=== PATIENT | female | born 1940 ===

== ENCOUNTER 2017-03-12 14:51 | Emergency (ER) | payer MEDICARE ==
[2017-03-12 15:23] LABS: BASO # 0.1 K/uL (0.0-0.2); BASO % 0.9 % (0.0-2.0); EOS # 0.1 K/uL (0.0-0.7); EOS % 0.9 % (0.0-4.0); HEMATOCRIT 42.7 % (34.0-47.0); LYMPH # 2.2 K/uL (1.0-4.3); LYMPH % 23.8 % (20.0-40.0); MEAN CELL VOLUME 93.2 fL (81.0-99.0); MEAN CORPUSCULAR HEMOGLOBIN 30.5 pg (27.0-31.0); MEAN CORPUSCULAR HGB CONC 32.8 g/dL (33.0-37.0); MEAN PLATELET VOLUME 8.2 fL (7.2-11.7); MONO # 0.6 K/uL (0.0-0.8); MONO % 6.7 % (0.0-10.0); RED CELL DISTRIBUTION WIDTH 14.1 % (11.5-14.5); WHITE BLOOD COUNT 9.4 K/uL (4.8-10.8)
[2017-03-12 15:31] LABS: CHLORIDE 96 mmol/L (98-107); POTASSIUM 4.4 mmol/L (3.6-5.2); SODIUM 134 mmol/L (132-148)
[2017-03-12 15:32] LABS: VENOUS BLOOD GAS BASE EXCESS -12.6 mmol/L (0.0-2.0); VENOUS BLOOD GAS PCO2 33 mmHg (40-60); VENOUS BLOOD PH 7.23 (7.32-7.43)
[2017-03-12 15:33] LABS: BILIRUBIN,TOTAL 0.7 mg/dL (0.2-1.3); GFR AFRICAN-AMERICAN > 60
[2017-03-12 15:34] LABS: ALB/GLOB RATIO 1.6 (1.0-2.1); ALKALINE PHOSPHATASE 97 U/L (38-126); ALT/SGPT 21 U/L (9-52); AST/SGOT 13 U/L (14-36); BLOOD UREA NITROGEN 16 mg/dL (7-17); CARBON DIOXIDE 14 mmol/L (22-30); TOTAL PROTEIN 7.6 g/dL (6.3-8.3)
[2017-03-12 15:35] LABS: CALCIUM 9.1 mg/dl (8.6-10.4)
[2017-03-12 15:53] LABS: GLUCOSE,RANDOM 428 mg/dL (65-105)
--- NOTE | 2017-03-12 15:59 | C.PDOC ---
History Of Present Illness 76-year-old female, PMHx includes Diabetes, presents to the emewrgency department with complaints of palpitations that started last night. Patient states that her rapid heart beat is making her feel fatigued and slightly dizzy. Symptoms intermittent in nature, and patient has not experienced them in the past. Denies fevers, chills, cough, chest pain, shortness of breath or any other associated symptoms. No other complaints at this time. She has recently change her doctor and sees Dr Annette Graves now. She did have a change in many of her medications. Time Seen by Provider: 03/12/17 15:04 Chief Complaint (Nursing): Palpitations History Per: Patient History/Exam Limitations: no limitations Onset/Duration Of Symptoms: Days Current Symptoms Are (Timing): Still Present Past Medical History Reviewed: Historical Data, Nursing Documentation, Vital Signs Vital Signs: Last Vital Signs Temp 97.4 F L 03/12/17 14:59 Pulse 105 H 03/12/17 17:57 Resp 15 03/12/17 17:57 BP 120/64 03/12/17 17:57 Pulse Ox 98 03/12/17 17:57 - Medical History PMH: HTN, Hypercholesterolemia Denies: Chronic Kidney Disease Family History: States: No Known Family Hx - Social History Hx Alcohol Use: No Hx Substance Use: No Review Of Systems Except As Marked, All Systems Reviewed And Found Negative. Constitutional: Positive for: Weakness. Negative for: Fever, Chills Cardiovascular: Positive for: Palpitations, Light Headedness. Negative for: Chest Pain, Orthopnea, Edema Respiratory: Negative for: Cough, Shortness of Breath Gastrointestinal: Negative for: Vomiting Musculoskeletal: Negative for: Back Pain Skin: Negative for: Rash Neurological: Negative for: Weakness, Numbness, Headache, Dizziness Physical Exam - Physical Exam Appears: Non-toxic, No Acute Distress Skin: Normal Color, Warm, Dry Eye(s): bilateral: Normal Inspection, PERRL, EOMI Nose: Normal Neck: Normal ROM Cardiovascular: Rhythm Regular (Tachycardic), No Murmur Respiratory: No Accessory Muscle Use Gastrointestinal/Abdominal: Soft, No Tenderness, No Guarding, No Rebound Extremity: Normal ROM ED Course And Treatment - Laboratory Results Result Diagrams: 03/12/17 15:13 03/12/17 15:13 Lab Interpretation: Abnormal (Blood sugar 428 with HCO3 14. Urine very concentrated) ECG: Interpreted By Me ECG Rhythm: Sinus Tachycardia, ST/T Changes ECG Interpretation: Abnormal O2 Sat by Pulse Oximetry: 98 Pulse Ox Interpretation: Normal Reevaluation Time: 19:10 Reassessment Condition: Improved (after 2 liters of normal saline and Insulin 5 u IVP. Heart rate now 100 and blood sugar 200.) Disposition Counseled Patient/Family Regarding: Studies Performed, Diagnosis, Need For Followup - Disposition Referrals: Annette Graves [Staff Provider] - Disposition: HOME/ ROUTINE Disposition Time: 19:11 Condition: IMPROVED Additional Instructions: Follow up with Dr Graves in the morning. Continue to hydrate and try to limit your carbohydrates. Instructions: Diabetic Hyperglycemia (ED), Dehydration (ED) Print Language: CAPE VERDEAN - Clinical Impression Clinical Impression: Dehydration, mild, Palpitations, Hyperglycemia due to type 2 diabetes mellitus - Scribe Statement The provider has reviewed the documentation as recorded by the Scribchaka Deal All medical record entries made by the Scribe were at my direction and personally dictated by me. I have reviewed the chart and agree that the record accurately reflects my personal performance of the history, physical exam, medical decision making, and the department course for this patient. I have also personally directed, reviewed, and agree with the discharge instructions and disposition.
[2017-03-12 16:06] LABS: THYROID STIMULATING HORMONE 0.26 mIU/L (0.46-4.68)
[2017-03-12 16:07] LABS: RBC URINE < 1 /hpf (0-3); URINE BACTERIA RARE (<OCC); URINE BILIRUBIN NEGATIVE (NEGATIVE); URINE BLOOD NEGATIVE (NEGATIVE); URINE COLOR Straw (YELLOW); URINE GLUCOSE (UA) 3+ mg/dL (Normal); URINE KETONE 2+ mg/dL (NEGATIVE); URINE LEUKOCYTE ESTERASE NEG Leu/uL (Negative); URINE PROTEIN NEGATIVE (NEGATIVE); URINE UROBILINOGEN NORMAL mg/dL (0.2-1.0); WBC URINE 1 /hpf (0-5)
--- NOTE | 2017-03-12 16:19 | RAD ---
PROCEDURE: CHEST RADIOGRAPH, 1 VIEW HISTORY: Palpations COMPARISON: 10/31/2016 FINDINGS: LUNGS: Biapical pleural thickening with upper lobe granulomatous changes. Mild venous congestion. Right hilar prominence. Small nodular density projecting over the lateral aspect of the left upper lung zone may represent a granuloma and or nodule. No focal infiltrate or effusion. PLEURA: As above. CARDIOVASCULAR: Normal. OSSEOUS STRUCTURES: No significant abnormalities. VISUALIZED UPPER ABDOMEN: Normal. OTHER FINDINGS: None. IMPRESSION: Biapical pleural thickening with upper lobe granulomatous changes. Mild venous congestion. Right hilar prominence. Small nodular density projecting over the lateral aspect of the left upper lung zone may represent a granuloma and or nodule. No focal infiltrate or effusion.
[2017-03-12] MEDS ORDERED: Sodium Chloride 0.9% 1,000 ML IV ONE ×2 (16:34→17:39)
[2017-03-12] MEDS ORDERED: (Novolin R) Insulin Human Regular 100 units/ml vial IV ONE (16:35)
[2017-03-12] MEDS ORDERED: (Novolin R) Insulin Human Regular 100 units/ml vial ONE (16:44)
[2017-03-12] MEDS ORDERED: Sodium Chloride 0.9% 1,000 ML ONE (16:44)
[2017-03-12 18:14] VITALS: O2SAT 98
[2017-03-12 19:11] VITALS: BP 118/63; PULSE 103; RESP 20; TEMP 98.6
--- NOTE | 2017-03-13 14:23 | CARD ---
APPROVED REPORT EKG Measurement Heart [id number] [place] [id number] [id number] <Conclusion> Sinus tachycardia Possible Left atrial enlargement T wave abnormality, consider inferior ischemia Abnormal ECG
== END 2017-03-12 19:34 | disposition home or self-care (01) ==
LOC: C.ER 14:51
DX: E11.65 Type 2 diabetes mellitus with hyperglycemia (principal); E86.0 Dehydration; R00.2 Palpitations
CPT/HCPCS: 71010; 80053; 81001; 82803; 82948; 84443; 84479; 84484; 85025; 85378; 93005; 96361; 96374; 99285; J7040

== ENCOUNTER 2018-03-21 19:35 | Emergency (ER) | payer MEDICARE ==
--- NOTE | 2018-03-21 20:29 | C.PDOC ---
History Of Present Illness 78 year old female presents to the ER with a complaint of left anterior chest wall pain that increases with deep breathing. Denies cough, diaphoresis, lightheadedness, nausea, or vomiting. Chief Complaint (Nursing): Chest Pain History Per: Patient History/Exam Limitations: no limitations Onset/Duration Of Symptoms: Hrs Current Symptoms Are (Timing): Still Present Modifying Factors: None Exacerbating Factors: Deep Breathing Alleviating Factors: None Recent travel outside of the [place]: No Past Medical History Reviewed: Historical Data, Nursing Documentation, Vital Signs Vital Signs: Last Vital Signs Temp 98.5 F 03/21/18 19:47 Pulse 85 03/21/18 22:19 Resp 13 03/21/18 22:19 BP 117/49 L 03/21/18 22:19 Pulse Ox 94 L 03/21/18 23:01 - Medical History PMH: HTN, Hypercholesterolemia Family History: States: Unknown Family Hx - Social History Hx Alcohol Use: No Hx Substance Use: No Review Of Systems Constitutional: Positive for: Sweats Cardiovascular: Positive for: Light Headedness Respiratory: Positive for: Cough Gastrointestinal: Positive for: Nausea, Vomiting Musculoskeletal: Positive for: Other (Chest wall pain) Physical Exam - Physical Exam Appears: Non-toxic Skin: Normal Color, Warm, Dry Head: Atraumatic, Normacephalic Eye(s): bilateral: Normal Inspection Oral Mucosa: Moist Chest: Symmetrical, Tenderness (Left anterior wall) Cardiovascular: Rhythm Regular Respiratory: Normal Breath Sounds, No Rales, No Rhonchi, No Wheezing Gastrointestinal/Abdominal: Soft, No Tenderness Neurological/Psych: Oriented x3, Normal Speech ED Course And Treatment - Laboratory Results Result Diagrams: 03/21/18 20:33 03/21/18 20:33 ECG: Interpreted By Me, Viewed By Me ECG Rhythm: Sinus Rhythm ECG Interpretation: Normal, No Acute Changes Interpretation Of ECG: NSR, normal tracings. Rate From EC O2 Sat by Pulse Oximetry: 94 (Room air) Pulse Ox Interpretation: Normal Progress Note: EKG, blood work, and CXR ordered. Toradol administered. Patient offered admission for chest pain observation but refused, family at bedside states they will observe her at home. Disposition Counseled Patient/Family Regarding: Diagnosis - Disposition Referrals: Annette Graves [Staff Provider] - Disposition: HOME/ ROUTINE Disposition Time: 23:00 Condition: STABLE Instructions: Chest Pain, Diabetes in Older Adults Forms: [facility] (Ecuadorean), Gen Discharge Inst Pashto Print Language: KYRGYZ - POA Present On Arrival: None Core Measure Indicators: Chest Pain - Clinical Impression Clinical Impression: Chest pain, Diabetes mellitus - Scribe Statement The provider has reviewed the documentation as recorded by the Scribe Arden Lutz All medical record entries made by the Scribe were at my direction and personally dictated by me. I have reviewed the chart and agree that the record accurately reflects my personal performance of the history, physical exam, medical decision making, and the department course for this patient. I have also personally directed, reviewed, and agree with the discharge instructions and disposition.
[2018-03-21 20:37] LABS: BASO % 0.3 % (0.0-2.0); EOS # 0.3 K/uL (0.0-0.7); EOS % 3.7 % (0.0-4.0); HEMOGLOBIN 12.2 g/dL (11.0-16.0); LYMPH # 2.4 K/uL (1.0-4.3); LYMPH % 28.8 % (20.0-40.0); MEAN CELL VOLUME 90.2 fL (81.0-99.0); MEAN CORPUSCULAR HEMOGLOBIN 30.8 pg (27.0-31.0); MEAN CORPUSCULAR HGB CONC 34.2 g/dL (33.0-37.0); MONO # 0.6 K/uL (0.0-0.8); MONO % 6.6 % (0.0-10.0); NEUT # 5.1 K/uL (1.8-7.0); NEUT % 60.6 % (50.0-75.0); RBC 3.96 Mil/uL (3.80-5.20); RED CELL DISTRIBUTION WIDTH 13.4 % (11.5-14.5); WHITE BLOOD COUNT 8.5 K/uL (4.8-10.8)
[2018-03-21 20:49] LABS: ALB/GLOB RATIO 1.3 (1.0-2.1); ALBUMIN 3.8 g/dL (3.5-5.0); ALT/SGPT 18 U/L (9-52); AST/SGOT 15 U/L (14-36); BLOOD UREA NITROGEN 16 mg/dL (7-17); CALCIUM 8.8 mg/dl (8.6-10.4); GFR AFRICAN-AMERICAN > 60; GFR NON-AFRICAN AMERICAN > 60; LIPASE 49 U/L (23-300)
[2018-03-21] MEDS ORDERED: (Novolin R) Insulin Human Regular 100 units/ml vial SC ONE (22:55)
[2018-03-21 23:17] VITALS: BP 106/49; PULSE 84; RESP 18; TEMP 98.3; O2SAT 95
--- NOTE | 2018-03-22 08:20 | RAD ---
Chest x-ray single frontal view History: Chest pain. Comparison: 03/12/2017 Findings: Small nodular density projecting over the left lung apex is suggestive for granuloma and or nodule. Mild venous congestion. Right hilar prominence. Patchy increased markings at the left lung base may represent atelectasis or infiltrate. Air underneath the left hemidiaphragm may represent gastric bubble. Impression: Small nodular density projecting over the left lung apex is suggestive for granuloma and or nodule. Mild venous congestion. Right hilar prominence.
--- NOTE | 2018-03-22 14:25 | CARD ---
APPROVED REPORT EKG Measurement Heart [id number] MO [id number] <Conclusion> Normal sinus rhythm Normal ECG
== END 2018-03-21 23:29 | disposition home or self-care (01) ==
LOC: C.ER 19:35
DX: R07.9 Chest pain, unspecified (principal); E11.9 Type 2 diabetes mellitus without complications
CPT/HCPCS: 71045; 80053; 83690; 84484; 85025; 85378; 93005; 96374; 99284; J1885

== ENCOUNTER 2018-07-22 23:00 | Emergency (ER) | payer MEDICARE ==
[2018-07-22 23:17] VITALS: O2SAT 97
--- NOTE | 2018-07-23 00:55 | C.PDOC ---
History Of Present Illness 78 year old female presents to the ED c/o worsening right hand pain and swelling. Patient reports that today at 15:00 she fell and landed on her right wrist while pumpkin picking. Patient denies other injuries, LOC, headache, visual changes, weakness, numbness. Time Seen by Provider: 07/22/18 23:25 Chief Complaint (Nursing): Finger,Hand,&Wrist History Per: Patient History/Exam Limitations: no limitations Onset/Duration Of Symptoms: Hrs (15:00) Current Symptoms Are (Timing): Still Present Quality: "Pain" Exacerbating Factor(s): Movement Recent travel outside of the [place]: No Additional History Per: Patient Past Medical History Reviewed: Historical Data, Nursing Documentation, Vital Signs Vital Signs: Last Vital Signs Temp 97.6 F 07/22/18 23:08 Pulse 89 07/22/18 23:08 Resp 20 07/22/18 23:08 BP 118/67 07/22/18 23:08 Pulse Ox 97 07/22/18 23:08 - Medical History PMH: HTN, Hypercholesterolemia Denies: Chronic Kidney Disease Surgical History: No Surg Hx Family History: States: Unknown Family Hx - Social History Hx Alcohol Use: No Hx Substance Use: No - Immunization History Hx Tetanus Toxoid Vaccination: No Hx Influenza Vaccination: No Hx Pneumococcal Vaccination: No Review Of Systems Constitutional: Negative for: Fever, Chills Eyes: Negative for: Vision Change Gastrointestinal: Negative for: Nausea, Vomiting Musculoskeletal: Positive for: Hand Pain. Negative for: Arm Pain Skin: Negative for: Rash Neurological: Negative for: Weakness, Numbness, Headache Physical Exam - Physical Exam Appears: Non-toxic, No Acute Distress Skin: Normal Color, Warm, Dry Head: Atraumatic, Normacephalic Eye(s): bilateral: Normal Inspection Extremity: Normal ROM (limited righyt wrist due to pain), Tenderness (dorsal aspect right wrist), Capillary Refill (< 2 seconds), Swelling (dorsal aspect right wrist) Pulses: Left Radial: Normal, Right Radial: Normal Neurological/Psych: Oriented x3, Normal Speech, Normal Motor, Normal Sensation Gait: Steady ED Course And Treatment O2 Sat by Pulse Oximetry: 97 (ON RA) Pulse Ox Interpretation: Normal - Other Rad Right wrist X-Ray X-Ray: Interpreted by Me, Viewed By Me Interpretation: impacted distal radius fracture Progress Note: Plan: - tylenol 650 mg PO. - Right wrist X-Ray- distal radius fx. XR reviewed by Dr Martin as well. Pt placed in a volar splint by CP and checked by me and placed in sling. Pt remained neurovasc intact after splint. On reassessment, patient is resting comfortably, and is in no acute distress. Patient was instructed to follow up ortho/ hand doctor in 1-2 days for further evaluation. Return precautions discussed Orthopedic Time Performed: 00:59 Time Out: Side verified, Site verified, Patient ID confirmed, Sterile procedures obs. Procedure: Splint Type: Volar Location: Right, Wrist Consent obtained: Verbal Performed by: Mid-level Provider (by CP checked by me) Diagnosis: Fracture Other:: impacted Location: Right, Distal Bone: Radius Capillary refill: Normal Distal Sensation: Normal Distal Motor Function: Normal Capillary Refill: Normal Compartment: Normal Distal Sensation: Normal Distal Motor Function: Normal Post-reduction Radiograph: Good Alignment Patient tolerated procedure: Well Disposition - Disposition Referrals: Tana Jimenez MD [Staff Provider] - Disposition: HOME/ ROUTINE Disposition Time: 01:16 Condition: STABLE Additional Instructions: Keep splint until seen by Hand doctor Follow up with PMD for other orthopedist or hand referral Tylenol or motrin/ advil for pain Return to ER if severe pain, numbness, discoloration of the fingers or worse Instructions: Wrist Fracture (DC) Forms: [facility] (Lithuanian) Print Language: SYRIAN - Clinical Impression Clinical Impression: Right wrist fracture - PA / TALENT REP / Resident Statement MD/DO has reviewed & agrees with the documentation as recorded. - Scribe Statement The provider has reviewed the documentation as recorded by the Scribe Jeremy Avila All medical record entries made by the Jomaribchaka were at my direction and personally dictated by me. I have reviewed the chart and agree that the record accurately reflects my personal performance of the history, physical exam, medical decision making, and the department course for this patient. I have also personally directed, reviewed, and agree with the discharge instructions and disposition.
[2018-07-23 01:20] VITALS: BP 118/71; PULSE 81; RESP 17; TEMP 97.7
--- NOTE | 2018-07-23 13:11 | RAD ---
Date of service: 07/22/2018 PROCEDURE: Right Wrist Radiographs. HISTORY: pain, fall, swelling COMPARISON: None. FINDINGS: BONES: There is a subacute transverse healing fracture in the distal radius there is diffuse bone demineralization. There is a subacute healing fracture in the styloid process of radius. Bone alignment is normal. JOINTS: Normal. No dislocation. SOFT TISSUES: Normal. OTHER FINDINGS: None. IMPRESSION: Subacute transverse healing fracture in the distal radius and subacute fracture in the styloid process of ulna. Periarticular soft tissue swelling at the wrist joint. No dislocation.
== END 2018-07-23 01:27 | disposition home or self-care (01) ==
LOC: C.ER 23:00
DX: S52.501A Unspecified fracture of the lower end of right radius, initial encounter for closed fracture (principal); S52.611A Displaced fracture of right ulna styloid process, initial encounter for closed fracture; W19.XXXA Unspecified fall, initial encounter